=== PATIENT | female | born 1960 | race Caucasian/White ===

== ENCOUNTER 2023-02-02 08:38 | Emergency (ER) | payer OTHER ==
[~2023-02-02] VITALS: Ht 157.5 cm; Wt 64.5 kg
[~2023-02-02 08:38] MED LIST: CIPR-278 PO; GABA-1181 PO; METR500 PO; SIMV-259 PO
[2023-02-02 08:57] VITALS: BP 126/62; PULSE 75; RESP 16; TEMP 98.5
[2023-02-02 09:40] LABS: BASOPHILS % (AUTO) 1.1 % (0.0-2.0); EOSINOPHILS % (AUTO) 4.6 % (1.0-6.0); HEMATOCRIT 39.5 % (36-46); HEMOGLOBIN 13.4 g/dL (12.0-16.0); LYMPHOCYTES # (AUTO) 1.4 K/uL (1.0-4.8); MEAN CORPUSCULAR HEMOGLOBIN 30.6 pg (26.0-34.0); MEAN CORPUSCULAR HGB CONC 33.9 G/dL (31.0-37.0); MEAN CORPUSCULAR VOLUME 90 fL (80-100); MONOCYTES # (AUTO) 0.5 K/uL (0.1-1.0); NEUTROPHILS # (AUTO) 2.9 K/uL (1.8-7.7); NEUTROPHILS % (AUTO) 57.3 % (40.0-70.0); PLATELET COUNT (AUTO) 215 K/uL (150-450); RED BLOOD CELL COUNT(AUTO) 4.37 MIL/uL (4.00-5.20); RED CELL DISTRIBUTION WIDTH 12.5 % (11.5-14.5)
[2023-02-02 09:51] LABS: ANION GAP 7 mmol/L (8-16); CALCIUM, TOTAL 8.2 mg/dL (8.8-10.5); CARBON DIOXIDE 26 mmol/L (22-29); CHLORIDE 108 mmol/L (98-107); CREATININE 0.75 mg/dL (0.60-1.30); GLOMERULAR FILTR. RATE CALC > 60 mL/min (>60); GLUCOSE,RANDOM 119 mg/dL (70-110); POTASSIUM 4.2 mmol/L (3.5-5.1); SODIUM SERUM 141 mmol/L (136-145)
[2023-02-02 09:56] LABS: B-TYPE NATRIURETIC PEPTIDE 35 pg/mL (0-100)
[2023-02-02 10:02] LABS: LACTIC ACID 1.8 mmol/L (0.4-2.0)
[2023-02-02 10:12] LABS: ALANINE AMINOTRANSFERASE 28 U/L (12-78); ALBUMIN 3.6 g/dL (3.4-5.0); ALKALINE PHOSPHATASE 62 U/L (46-116); ASPARTATE AMINOTRANSFERASE 21 U/L (15-37); BILIRUBIN,TOTAL 0.4 mg/dL (0.1-1.0); LIPASE 29 U/L (16-77); TOTAL PROTEIN, SERUM 6.4 g/dL (6.4-8.2)
[2023-02-02 10:41] LABS: APPEARANCE,URINE CLEAR (CLEAR); BILIRUBIN,URINE NEGATIVE (NEGATIVE); GLUCOSE, URINE (UA) NEGATIVE (NEGATIVE); KETONES,URINE NEGATIVE (NEGATIVE); NITRATE,URINE NEGATIVE (NEGATIVE); OCCULT BLOOD,URINE NEGATIVE (NEGATIVE); PH,URINE 6.5 (5.0-8.0); PROTEIN,URINE NEGATIVE (NEGATIVE); SPECIFIC GRAVITIY, URINE 1.008 (1.003-1.030); UROBILINOGEN,URINE <=1.0 mg/dL (<=1.0)
[2023-02-02 10:42] LABS: BACTERIA,URINE None Seen /HPF (None Seen); LEUKOCYTE ESTERASE ,URINE NEGATIVE (NEGATIVE)
[2023-02-02 10:45] LABS: RBC,URINE 0-2 /HPF (0-2); SQUAMOUS EPITHELIAL CELL,UR Few /LPF (None Seen); WBC,URINE 0-2 /HPF (0-5)
[2023-02-02] MEDS ORDERED: POLY238P PO (11:06)
[2023-02-02] MEDS ORDERED: SODIUM CHLORIDE 0.9% 500 ML IV ONE (11:15)
== END 2023-02-02 11:58 | disposition home or self-care (01) ==
LOC: EMS 08:38
DX: R55 Syncope and collapse (principal); K59.00 Constipation, unspecified; Z90.710 Acquired absence of both cervix and uterus; Z90.89 Acquired absence of other organs
CPT/HCPCS: 80053; 81001; 83605; 83690; 83880; 84484; 85025; 93005; 96360; 99284; 36415-L1; 36415-TC

== ENCOUNTER 2023-02-05 11:22 | Emergency (ER) | payer OTHER ==
[~2023-02-05] VITALS: Ht 160 cm; Wt 64.5 kg
[~2023-02-05 11:22] MED LIST changes: +POLY238P PO
[2023-02-05 11:25] VITALS: BP 139/82; PULSE 79; RESP 16; TEMP 98.6
[2023-02-05] MEDS ORDERED: POLY510P31 PO (11:27)
[2023-02-05] MEDS ORDERED: PEG 3350/NA SULF,BICARB,CL/KCL 4000 ML SOLUTION PO ONE (12:30)
[2023-02-05] MEDS ORDERED: MINERAL OIL 133 ML ENEMA PR ONE (12:30)
== END 2023-02-05 13:33 | disposition home or self-care (01) ==
LOC: EMS 11:34
DX: K59.00 Constipation, unspecified (principal); Z90.710 Acquired absence of both cervix and uterus; Z90.722 Acquired absence of ovaries, bilateral; Z90.89 Acquired absence of other organs
CPT/HCPCS: 99284; 99285; Z7502; Z7610

== ENCOUNTER 2024-10-25 08:49 | Emergency (ER) | payer OTHER ==
[~2024-10-25] VITALS: Ht 160 cm; Wt 63.6 kg
[~2024-10-25 08:49] MED LIST changes: -CIPR-278 PO; -METR500 PO; +POLY510P31 PO; -SIMV-259 PO
[2024-10-25 09:33] LABS: EOSINOPHILS % (AUTO) 5.9 % (1.0-6.0); HEMOGLOBIN 13.4 g/dL (12.0-16.0); LYMPHOCYTES % (AUTO) 24.2 % (22.0-44.0); MEAN CORPUSCULAR HEMOGLOBIN 30.6 pg (26.0-34.0); MEAN CORPUSCULAR HGB CONC 34.3 G/dL (31.0-37.0); MEAN CORPUSCULAR VOLUME 89 fL (80-100); MONOCYTES # (AUTO) 0.4 K/uL (0.1-1.0); MONOCYTES % (AUTO) 9.9 % (2.0-9.0); NEUTROPHILS # (AUTO) 2.5 K/uL (1.8-7.7); PLATELET COUNT (AUTO) 186 K/uL (150-450); RED BLOOD CELL COUNT(AUTO) 4.37 MIL/uL (4.00-5.20); RED CELL DISTRIBUTION WIDTH 12.4 % (11.5-14.5); WHITE BLOOD COUNT (AUTO) 4.3 K/uL (4.5-11.0)
[2024-10-25 09:38] LABS: ANION GAP 8 mmol/L (8-16); CALCIUM, TOTAL 8.2 mg/dL (8.8-10.5); CARBON DIOXIDE 26 mmol/L (22-29); CHLORIDE 107 mmol/L (98-107); GLOMERULAR FILTR. RATE CALC > 60 mL/min (>60); GLUCOSE,RANDOM 122 mg/dL (70-110); POTASSIUM 3.6 mmol/L (3.5-5.1); UREA NITROGEN, BLOOD 15 mg/dL (7-18)
[2024-10-25 09:53] LABS: ALBUMIN 3.5 g/dL (3.4-5.0); BILIRUBIN,TOTAL 0.6 mg/dL (0.1-1.0); TOTAL PROTEIN, SERUM 6.5 g/dL (6.4-8.2)
[2024-10-25 09:57] LABS: TROPONIN I-HIGH SENSITIVITY 4 ng/L (<51)
[2024-10-25 09:58] LABS: SODIUM SERUM 141 mmol/L (136-145)
[2024-10-25] MEDS: ONDANSETRON HCL 4 MG/2 ML VIAL IVP ONE (10:43)
[2024-10-25] MEDS: MORPHINE SULFATE 4 MG/ML SYRINGE IVP ONE (10:44)
[2024-10-25] MEDS ORDERED: SODIUM CHLORIDE 0.9% 100 ML ONE (10:50)
[2024-10-25] MEDS ORDERED: IOHEXOL 350 MG/ML 100 ML VIAL ONE (10:50)
[2024-10-25 12:14] LABS: APPEARANCE,URINE CLEAR (CLEAR); BILIRUBIN,URINE NEGATIVE (NEGATIVE); COLOR,URINE LIGHT YELLOW (YELLOW); GLUCOSE, URINE (UA) NEGATIVE (NEGATIVE); KETONES,URINE NEGATIVE (NEGATIVE); LEUKOCYTE ESTERASE ,URINE NEGATIVE (NEGATIVE); NITRATE,URINE NEGATIVE (NEGATIVE); OCCULT BLOOD,URINE NEGATIVE (NEGATIVE); PH,URINE 5.5 (5.0-8.0); PROTEIN,URINE NEGATIVE (NEGATIVE); SPECIFIC GRAVITIY, URINE 1.011 (1.003-1.030); UROBILINOGEN,URINE <=1.0 mg/dL (<=1.0)
[2024-10-25 13:13] VITALS: BP 104/55; PULSE 65; RESP 18; TEMP 97.7; O2SAT 98
== END 2024-10-25 13:54 | disposition home or self-care (01) ==
LOC: EMS 08:52
DX: R10.32 Left lower quadrant pain (principal); R10.12 Left upper quadrant pain; F41.9 Anxiety disorder, unspecified; Z90.49 Acquired absence of other specified parts of digestive tract; Z90.710 Acquired absence of both cervix and uterus; Z87.19 Personal history of other diseases of the digestive system
CPT/HCPCS: 99285; 74176; 96374; 96375; 80048; 80076; 81003; 83690; 84484; 85025; 36415; 93005; Q9967; J2270; J2405; J7050